=== PATIENT | male | born 1990 | race African-American/Black ===

== ENCOUNTER 2019-08-07 20:19 | Emergency (ER) | payer OTHER ==
[~2019-08-07] VITALS: Ht 188 cm; Wt 68.0 kg
[2019-08-07 20:45] LABS: URINE BLOOD NEGATIVE (Negative); URINE CLARITY CLEAR; URINE COLOR YELLOW; URINE GLUCOSE-RANDOM* NEGATIVE (Negative); URINE KETONES TRACE (Negative); URINE NITRITE-REFLEX NEGATIVE (Negative); URINE PROTEIN (DIPSTICK) NEGATIVE (Negative)
[2019-08-07 20:48] LABS: ICTOTEST (BILI CONFIRMATORY) Negative (Negative); URINE BILIRUBIN NEGATIVE (Negative); URINE LEUKOCYTES-REFLEX 2+ (Negative)
[2019-08-07 20:55] LABS: SQUAMOUS None Seen /LPF (0-3)
[2019-08-07 20:56] LABS: BACTERIA-REFLEX 1-9 Few /HPF (None Seen); CASTS None Seen /LPF (None Seen); CRYSTALS None Seen /LPF (None Seen); URINE RBC None Seen /HPF (0-2); URINE WBC-REFLEX >25 Many /HPF (0-5)
[2019-08-07] MEDS ORDERED: KEFLEX500 M1 PO (21:16)
[2019-08-07 21:28] VITALS: BP 107/64
== END 2019-08-07 21:30 | disposition home or self-care (01) ==
LOC: ER 20:19
PROVIDERS: Nurse Practitioner Family
DX: N39.0 Urinary tract infection, site not specified (principal); Z20.2 Contact with and (suspected) exposure to infections with a predominantly sexual mode of transmission; F17.210 Nicotine dependence, cigarettes, uncomplicated